=== PATIENT | male | born 1965 | race Caucasian/White ===

== ENCOUNTER → 2016-10-03 | Outpatient (CLI) | payer OTHER ==
[~2016-10-03] MED LIST: CYMBALTA60 MG PO; DALIRESP500 MCG PO; FLEXERIL10 MG PO; NOHOMEMEDS; PEPCID COMPLET1 EACH PO; PERCOCET 7.51 TABLET PO; PROAIR HFA8.5 GM IH; RELAFEN500 M1 PO; REQUIP2 MG PO; SPIRIVA1 INHALATI IH; SYMBICORT60 INHALAT IH
== END | disposition home or self-care (01) ==
LOC: RES 07:38
DX: Z02.71 Encounter for disability determination (principal)
CPT/HCPCS: 94060; 94729; 94760